=== PATIENT | female | born 1975 | race Caucasian/White ===

== ENCOUNTER 2018-06-14 21:02 | Inpatient (IN) | payer BC ==
[~2018-06-14] VITALS: Ht 152.4 cm; Wt 70.3 kg
[2018-06-14] MEDS ORDERED: TRAZODONE HCL150 MG PO (21:23)
[2018-06-14] MEDS ORDERED: SYNTHROID125 MCG PO (21:23)
[2018-06-14] MEDS ORDERED: TOPAMAX15 MG (21:25)
[2018-06-14 22:03] LABS: APPEARANCE HAZY (CLEAR); COLOR YELLOW (YELLOW)
[2018-06-14 22:04] LABS: BILIRUBIN NEGATIVE (NEGATIVE); GLUCOSE NEGATIVE (NEGATIVE); KETONE NEGATIVE (NEGATIVE); NITRITE NEGATIVE (NEGATIVE); PROTEIN NEGATIVE (NEGATIVE); RED CELLS - URINE OCC /hpf (0-5); SPECIFIC GRAVITY 1.015 (1.005-1.020); UROBILINOGEN NORMAL (NORMAL); WHITE CELLS - URINE 0-5 /hpf (0-5)
[2018-06-14 22:05] LABS: BACTERIA MANY /hpf (NONE SEEN); MUCUS <1+ /lpf (NONE SEEN)
[2018-06-14 22:16] LABS: HEMATOCRIT 32.7 % (36.0-48.0); HEMOGLOBIN 11.1 g/dL (12-16); MCH 27.8 pg (26.0-34.0); MCHC 33.9 g/dL (31.0-37.0); MCV 81.8 fL (80.0-100.0); MEAN PLATELET VOLUME 10.4 fL (7.4-10.4); PLATELET COUNT 202 10x3/uL (130-400); RDW 12.8 % (11.5-14.5); WBC 9.1 10x3/uL (4.8-10.8)
[2018-06-14 22:37] LABS: LYMPHOCYTES 34 % (15-50); NEUTROPHILS 66 % (40-80); PLATELET ESTIMATE NORMAL
[2018-06-14 22:39] LABS: ALBUMIN 3.4 g/dL (3.4-5.0); ALKALINE PHOSPHATASE 65 U/L (46-116); ALT (SGPT) 19 U/L (10-68); AMYLASE - SERUM 44 U/L (25-115); BILIRUBIN - TOTAL 0.53 mg/dL (0.2-1.3); CALC OSMOLALITY 281 mosm/kg (275-300); CALCIUM 8.1 mg/dL (8.5-10.1); CARBON DIOXIDE 23.5 mmol/L (21.0-32.0); CHLORIDE - SERUM 109 mmol/L (98-107); CREATININE - SERUM 0.8 mg/dL (0.6-1.3); GLUCOSE 99 mg/dL (74-106); LIPASE 214 U/L (73-393); PROTEIN - SERUM 6.6 g/dL (6.4-8.2); SODIUM 142 mmol/L (136-145); TROPONIN-I < 0.017 ng/mL (0.000-0.060); UREA NITROGEN 10 mg/dL (7-18); eGFR NON AFRICAN AMERICAN 83 mL/min (90-120)
[2018-06-14 22:52] LABS: POTASSIUM - SERUM 2.8 mmol/L (3.5-5.1)
--- NOTE | 2018-06-14 23:08 | NUR ---
PATIENT TO CT VIA STRETCHER.
--- NOTE | 2018-06-14 23:35 | NUR ---
PT'S IV COULD NOT TOLERATE THE CT SCAN. STARTED TWO ADDITONAL LINES
--- NOTE | 2018-06-14 23:36 | NUR ---
IV IN THE RIGHT WRIST D/C'D.
--- NOTE | 2018-06-15 00:50 | NUR ---
NS HANGING AND INFUSING WITH POTASSIUM CL.
--- NOTE | 2018-06-15 01:49 | NUR ---
SECOND DOSE OF 10 MEQ POTASSIUM, 1000 ML NS, AND LEVAQUIN 750 MG TAKEN TO UNIT WITH PATIENT. THESE ARE NOT HANGING OR INFUSING.
[2018-06-15 01:53] VITALS: BP 107/82
--- NOTE | 2018-06-15 02:11 | NUR ---
RECEIVED PT VIA STRETCHER FROM ED, PT TO ROOM 1223, PT TRANSFERS SELF TO BED, ADMISSION HISTORY, ASSESSMENT, AND MED REC INITIATED
[2018-06-15] MEDS ORDERED: PHENERGAN25 M1 PO (02:15)
[2018-06-15] MEDS ORDERED: ACETAMINOPHEN500 M1 PO (02:16)
[2018-06-15] MEDS ORDERED: IBUPROFEN800 MG PO (02:17)
[2018-06-15 02:38] VITALS: BP 110/72; BMI 30.3
--- NOTE | 2018-06-15 02:56 | NUR ---
ADMISSION HISTORY, ASSESSMENT, AND MED REC COMPLETED
--- NOTE | 2018-06-15 02:59 | NUR ---
2ND BAG OF KCL HUNG PER MD ORDERS, SEE EMAR, PT REPORTS BEING NERVOUS BECAUSE THE KCL WAS HURTING WHILE UP IN ER, INFORMED PT THAT I WILL KEEP AN EYE ON IT, PT VERBALIZES UNDERSTANDING, REQUESTED AND SERVED CUP OF ICE, PT ORIENTED TO ROOM, BED IN LOW POSITION, SIDE RAILS X 2
--- NOTE | 2018-06-15 03:12 | NUR ---
LATE ENTRY: PT REQUESTED AND PROVIDED ICE PACK TO PLACE ON ARM AT THIS TIME
--- NOTE | 2018-06-15 03:12 | NUR ---
PT BUSINESS INTELLIGENCE DEVELOPER LIGHT, STATES "IT'S REALLY BURNING, CAN YOU TURN IT DOWN SOME", KCL DECREASED TO 50ML/HR, WARM WASH CLOTH PROVIDED TO WASH FACE, WILL CONTINUE TO MONITOR
--- NOTE | 2018-06-15 03:26 | NUR ---
PT REPORTS THAT IT IS STILL HURTING, BUT NOT BAD AT THIS TIME, WILL CONTINUE TO MONITOR
--- NOTE | 2018-06-15 03:48 | NUR ---
PT CLINICAL QUALITY MANAGER LIGHT, REPORTS THAT IT IS STILL BURNING, GAVE PT OPTION TO STOP IV INFUSION, PT STATES "NO, JUST TURN IT BACK TO INFUSE AT 100 ML/HR SO IT WILL BE DONE QUICKER", KCL INCREASED TO 100ML/HR, WILL CONTINUE TO MONITOR
--- NOTE | 2018-06-15 04:11 | NUR ---
KCL STOPPED, NS RESUMES AT THIS TIME TO FLUSH LINE
--- NOTE | 2018-06-15 04:14 | NUR ---
ADM MITZI SIVP PER MD ORDERS, LEVAQUIN HUNG IVPB PER MD ORDERS, SEE EMAR, PT REPORTS THAT HER ARM FEELS "100%" BETTER NOW, PT INST TO LET ME KNOW IF THE LEVAQUIN CAUSES ANY BURNING SENSATION, PT VERBALIZES UNDERSTANDING
--- NOTE | 2018-06-15 05:03 | NUR ---
SHARLA BRADLEY, RN IN ROOM AND PLACES TELEMETRY, PT REPORTS HER PAIN IS A LOT BETTER RIGHT NOW, REQUESTED AND ADJ AIR CONDITIONING, DENIES FURTHER NEEDS
--- NOTE | 2018-06-15 06:40 | NUR ---
PT UP TO BR WITH ASSISTANCE, VOIDED WITH NO DIFFICULTY, STATES "THIS IS THE MOST I'VE VOIDED IN A COUPLE OF DAYS", PT TO SINK TO WASH HANDS, BACK TO BED, DENIES NEEDS AT THIS TIME
[2018-06-15 07:50] VITALS: BP 121/78
--- NOTE | 2018-06-15 07:50 | NUR ---
PT. AWAKE AND ALERT SITTING UP IN BED. PT. HAS COMPLAINTS OF ABDOMINAL PAIN IN LEFT LOWER QUAD. AT 5 ON NUMERIC PAIN SCALE. DILAUDID ORDERED FOR PAIN AND GIVEN TO PT FOR PAIN. SEE EMAR. VITALS AND ASSESSMENT OBTAINED SEE ASSESSSMENT.
--- NOTE | 2018-06-15 09:00 | NUR ---
DR. JIMENEZ'S MUD ANALYSIS WELL LOGGING CAPTAIN HERE TO SEE PT.
[2018-06-15 10:21] VITALS: Ht 152.4 cm; Wt 70.3 kg
--- NOTE | 2018-06-15 10:50 | NUR ---
LAB HERE TO DRAW STAT LABS ON PT.
--- NOTE | 2018-06-15 11:05 | NUR ---
PT COMPLAINS OF LOWER LEFT QUAD ABDOMINAL PAIN 5/10 ON NUMERIC PAIN SCALE. NORCO 3/325 1 TAB P.O GIVEN AT THIS TIME FOR PAIN.
[2018-06-15 11:12] LABS: BASOPHILS 0.1 % (0-2); EOSINOPHILS 0 % (0-7); HEMOGLOBIN 11.1 g/dL (12-16); IMMATURE GRANULOCYTES 0.1 % (0-5); LYMPHOCYTES 32.2 % (15-50); MCH 27.8 pg (26.0-34.0); MCHC 33.6 g/dL (31.0-37.0); MCV 82.7 fL (80.0-100.0); MEAN PLATELET VOLUME 10.8 fL (7.4-10.4); MONOCYTES 10.6 % (2-11); PLATELET COUNT 184 10x3/uL (130-400); RBC 3.99 10x6/uL (4.00-5.40); RDW 12.8 % (11.5-14.5); WBC 6.9 10x3/uL (4.8-10.8)
[2018-06-15 11:26] LABS: ALBUMIN 3.1 g/dL (3.4-5.0); ALKALINE PHOSPHATASE 60 U/L (46-116); ALT (SGPT) 20 U/L (10-68); BILIRUBIN - TOTAL 0.54 mg/dL (0.2-1.3); CALC OSMOLALITY 286 mosm/kg (275-300); CALCIUM 8.1 mg/dL (8.5-10.1); CARBON DIOXIDE 23.9 mmol/L (21.0-32.0); CHLORIDE - SERUM 112 mmol/L (98-107); CREATININE - SERUM 0.5 mg/dL (0.6-1.3); GLUCOSE 92 mg/dL (74-106); MAGNESIUM - SERUM 1.7 mg/dL (1.8-2.4); POTASSIUM - SERUM 3.3 mmol/L (3.5-5.1); PROTEIN - SERUM 6.4 g/dL (6.4-8.2); SODIUM 145 mmol/L (136-145); UREA NITROGEN 7 mg/dL (7-18); eGFR NON AFRICAN AMERICAN > 90 mL/min (90-120)
--- NOTE | 2018-06-15 11:48 | NUR ---
PT AMBULATORY TO BATHROOM WITHOUT ASSIST. PT STATED PAIN STILL NOT ANY BETTER AND SHE IS JUST TRYING TO GET SOME SLEEP.
[2018-06-15 12:30] VITALS: BP 112/82
--- NOTE | 2018-06-15 12:30 | NUR ---
PT. RESTING IN BED WITH EYES CLOSED. PT. STILL COMPLAINS OF PAIN IN ABDOMEN WITH MOVEMENT.
--- NOTE | 2018-06-15 13:08 | NUR ---
PT. COMPLAINS OF PAIN 7/10 ON NUMERIC PAIN SCALE. DILAUDID 1MG IVP GIVEN AT THIS TIME FOR LOWER LEFT QUAD ABDOMINAL PAIN.
--- NOTE | 2018-06-15 13:30 | NUR ---
PT. STILL RESTING IN BED WITH EYES CLOSED AND REPORTS PAIN IS DECREASED AFTER IV PAIN MED.
--- NOTE | 2018-06-15 14:00 | NUR ---
PT. RESTING IN BED WITH EYES CLOSED. NO COMPLAINTS AT THIS TIME.
[2018-06-15 14:20] LABS: APPEARANCE CLEAR (CLEAR); BILIRUBIN NEGATIVE (NEGATIVE); COLOR STRAW (YELLOW); GLUCOSE NEGATIVE (NEGATIVE); KETONE NEGATIVE (NEGATIVE); NITRITE NEGATIVE (NEGATIVE); PROTEIN NEGATIVE (NEGATIVE); SPECIFIC GRAVITY 1.015 (1.005-1.020); UROBILINOGEN NORMAL (NORMAL)
--- NOTE | 2018-06-15 15:00 | NUR ---
PT. AWAKE AND ALERT AND REQUESTED A POPSICLE. POPSICLE GIVEN.
--- NOTE | 2018-06-15 16:18 | NUR ---
DR. JIMENEZ HERE TO SEE PT.
--- NOTE | 2018-06-15 17:01 | NUR ---
PT. COMPLAINS OF LEFT LOWER QUAD. PAIN 6/10 ON NUMERIC PAIN SCALE. NORCO 10 GIVEN 1 TAB P.O FOR PAIN. SEE EMAR.
--- NOTE | 2018-06-15 17:19 | NUR ---
LAB HERE TO DRAW SERUM POTASSIUM.
--- NOTE | 2018-06-15 18:33 | NUR ---
PT. RESTING IN BED WITH EYES CLOSED. PT. STATES SHE IS STILL HAVING SOME ABDOMINAL PAIN AND SOME NAUSEA OFF AND ON.
[2018-06-15 19:12] VITALS: BP 114/77
--- NOTE | 2018-06-15 19:12 | NUR ---
PT REC'D IN BED AT THIS TIME. COMPLAINS OF LOWER ABDOMINAL PAIN THAT HAS BEEN UNRELIEVED BY PAIN MEDICATION TODAY. PATIENT STATES THAT THE BELLY PAIN BEGAN AFTER SHE COMPLETED HER SUPPER TRAY TODAY. IV INFUSING TO THE LEFT ARM AT 50 ML.HR.STIE CLEAR AND PATNET. LUNGS CLEAR. BS+. TENDERNESS NOTED TO THE LEFT LOWER QUADRANT UPON PALPATION. PT STATES THAT SHE IS EXHAUSTED AND WANTS TO GO HOME. SHE SAYS SHE HATES HOW THE DILAUDUD MAKES HER FEEL. PAIN MEDICATION OFFERED AT THIS TIME AND PATIENT STATES WHATEVER. Julieta BRADLEY RN
--- NOTE | 2018-06-15 20:08 | NUR ---
PT MEDICATED AT THIS TIME WITH DILAUDUD 1 MG FOR PAIN LEVEL OF 7 AT THIS TIME. Julieta BRADLEY RN
--- NOTE | 2018-06-15 21:06 | NUR ---
PT MEDICATED WITH HYDROCODONE 10 MG AT THIS TIME. PT STATES THAT PAIN IS 4 AT THIS TIME. Julieta BRADLEY RN
--- NOTE | 2018-06-15 22:17 | NUR ---
PT SPOUSE VISITING. PT REQUESTING A RED POPSICLE. Julieta BRADLEY RN
--- NOTE | 2018-06-15 22:40 | NUR ---
PT ASLEEP AT THIS TIME. NO DISTRESS NOTED. Julieta BRADLEY RN
--- NOTE | 2018-06-15 23:36 | NUR ---
PT MEDICATED WITH PHENERGAN. PT REQUESTING THAT SHE BE MEDICATED PRIOR TO DILAUDID BECAUSE IT MAKES HER NAUSEATED. PT STATES THAT SHE WILL CALL FOR HER PAIN MEDICATION. PT INITIALLY REQUESTED THAT ALL PAIN MEDICATEION BE BROUGHT ON SCHEDULE. PT INFORMED THAT IS SCHEDULED PRN AND SHE WOULD HAVE TO ASK FOR IT IF IT IS NEEDED. Julieta BRADLEY RN
[2018-06-16 00:26] VITALS: BP 111/78
--- NOTE | 2018-06-16 00:30 | NUR ---
PT MEDICATED WITH DILAUDID 2 MG FOR PAIN LEVEL OF 6. WILL CONTINUE TO MONITOR PAIN THIS SHIFT. ИВАН. Julieta BRADLEY RN. Julieta BRADLEY RN
--- NOTE | 2018-06-16 01:19 | NUR ---
PT ASLEEP AFTER PAIN MEDICATION. DID NOT AWAKEN. RESPS EVEN AND UNLABORED. Julieta BRADLEY RN
--- NOTE | 2018-06-16 03:17 | NUR ---
PT ASLEEP AT THIS TIME. DID NOT AWAKEN. NO DISTRESS NOTED. Julieta BRADLEY RN
[2018-06-16 04:00] VITALS: BP 104/61
--- NOTE | 2018-06-16 04:00 | NUR ---
PT ASLEEP UPON ENTERING ROOM. PT AWAKENED AND ASKED IF IT WAS TIME FOR PAIN MEDICATION. PT STATES HER PAIN IS A 5. SHE INTERMITTENTLY DRIFTS OFF TO SLEEP. LEVAQUIN UP AT THIS TIME. WILL MEDICATE FOR PAIN. Julieta BRADLEY RN
--- NOTE | 2018-06-16 04:14 | NUR ---
PT MEDICATED WITH NORCO 10 FOR PAIN. Julieta BRADLEY RN
--- NOTE | 2018-06-16 05:13 | NUR ---
PT RESTING COMFORTABLY AFTER PAIN MEDICATION. NO DISTRESS NOTED. Julieta BRADLEY RN
[2018-06-16 07:58] LABS: BASOPHILS 0.2 % (0-2); EOSINOPHILS 0.2 % (0-7); HEMATOCRIT 32.1 % (36.0-48.0); HEMOGLOBIN 10.7 g/dL (12-16); IMMATURE GRANULOCYTES 0.2 % (0-5); LYMPHOCYTES 36.4 % (15-50); MCH 27.8 pg (26.0-34.0); MCHC 33.3 g/dL (31.0-37.0); MCV 83.4 fL (80.0-100.0); MEAN PLATELET VOLUME 10.9 fL (7.4-10.4); MONOCYTES 11.9 % (2-11); NEUTROPHILS 51.1 % (40-80); PLATELET COUNT 193 10x3/uL (130-400); RBC 3.85 10x6/uL (4.00-5.40); RDW 12.8 % (11.5-14.5)
[2018-06-16 08:01] LABS: CARBON DIOXIDE 26.2 mmol/L (21.0-32.0); CHLORIDE - SERUM 107 mmol/L (98-107); GLUCOSE 96 mg/dL (74-106); POTASSIUM - SERUM 3.3 mmol/L (3.5-5.1); SODIUM 140 mmol/L (136-145)
[2018-06-16 08:07] LABS: CALC OSMOLALITY 275 mosm/kg (275-300); CREATININE - SERUM 0.6 mg/dL (0.6-1.3); eGFR NON AFRICAN AMERICAN > 90 mL/min (90-120)
[2018-06-16 08:09] LABS: UREA NITROGEN 4 mg/dL (7-18)
[2018-06-16 08:12] LABS: WBC 4.8 10x3/uL (4.8-10.8)
[2018-06-16 08:14] VITALS: BP 116/68
--- NOTE | 2018-06-16 08:14 | NUR ---
SHIFT ASSESSMENT COMPLETED AT THIS TIME. SEE FLOWSHEET. PT RATES PAIN 3/10 AT THIS TIME AND REPORTS IT IS TOLERABLE. INQUIRES ABOUT REGULAR DIET. ADVISED PT THAT MD WILL MAKE ROUNDS SHORTLY. PT VERBALIZED UNDERSTANDING. PT REQUESTS AND RECEIVES BUI POPSICLE. NO FURTHER NEEDS VOICED. BED LOW, WHEELS LOCKED, CALL LIGHT AND PHONE WITHIN REACH. SIDE RAILS UP X2.
--- NOTE | 2018-06-16 08:53 | NUR ---
PT RINGS CALL LIGHT REQUESTING SHOWER. WILL CALL TELEMETRY TO INFORM OF SHOWER TIME.
--- NOTE | 2018-06-16 09:12 | NUR ---
PT UP TO SHOWER. PIV TO LT HAND SL AND WRAPPED. TOWELS AND SOAP PROVIDED. LINENS ON BED CHANGED AT THIS TIME.
--- NOTE | 2018-06-16 09:40 | NUR ---
PT REQUESTS PAIN MEDICATION FOR PAIN RATED 7/10 DESCRIBED STABBING/SHARP ABDOMINAL PAIN. NORCO 10/325MG X1 TAB GIVEN AT THIS TIME. PT DENIES FURTHER NEEDS. WILL CONTINUE TO MONITOR.
--- NOTE | 2018-06-16 10:20 | NUR ---
PT REPORTS SHE WENT TO THE BATHROOM AND "PASSED A LOT OF GAS" BUT DID NOT HAVE A BOWEL MOVEMENT. PT REQUESTING PAIN MEDICATION. ADVISED PT THAT SHE JUST HAD A NORCO 10 AND ADVISED THAT SHE MAY WANT TO WAIT LONG ENOUGH FOR THAT MEDICATION TO TAKE EFFECT. PT IS AGREEABLE AND DENIES FURTHER NEEDS AT THIS TIME.
--- NOTE | 2018-06-16 11:02 | NUR ---
POTASSIUM, MAGOX, AND LOVENOX GIVEN PER ORDERS. SEE EMAR FOR ADMINISTRATION. PT DENIES NEEDS AT THIS TIME.
--- NOTE | 2018-06-16 11:40 | NUR ---
PT RESTING WITH EYES CLOSED AND RESP EVEN AND UNLABORED. PT AWAKENS TO LIGHT VERBAL STIMULI FOR SCHEDULED MEDICATION. PT REPORTS PAIN IN ABD IS SHARP, STABBING, AND BURNING PAIN. REQUESTS AND RECEIVES DILAUDID 2MG/1ML IV GIVEN FOR PAIN RATED 6/10 AT THIS TIME. FLORAJEN ALSO GIVEN PER ORDERS. PT DENIES FURTHER NEEDS AT THIS TIME.
[2018-06-16 12:00] VITALS: BP 112/74
--- NOTE | 2018-06-16 12:30 | NUR ---
PAIN REASSESSMENT COMPLETED. PT RESTING ON RT SIDE WITH EYES CLOSED, RESP EVEN & UNLABORED. PT LEFT UNDISTURBED AT THIS TIME.
--- NOTE | 2018-06-16 12:52 | NUR ---
PIV ALARMING OCCLUDED. ROUNDS MADE. SITE ASSESSED WNL, PUMP RESTARTED. PT STATES "THAT MEDICINE KICKED IN AND I'M FEELING A LOT BETTER." CL MEAL TRAY SERVED. PT DENIES FURTHER NEEDS AT THIS TIME.
--- NOTE | 2018-06-16 13:14 | NUR ---
PT RESTING WITH EYES CLOSED. RESP EVEN & UNLABORED. PT LEFT UNDISTURBED AT THIS TIME.
--- NOTE | 2018-06-16 14:36 | NUR ---
FLAGYL SET TO INFUSE PER ORDERS. SEE EMAR FOR ADMINISTRATION. PT REQUESTS AND RECEIVES NORCO 10/325MG X1 TAB FOR PAIN RATED 5/10 IN ABD AT THIS TIME. PT REPORTS DESIRE TO "STAY UP ON NORCO AND ELIMINATE DILAUDID IN PREPARATION OF GOING HOME." PT REPORTS H/A AND STATES SHE HAS NOT HAD HER MIGRAINE MEDICINE SINCE ADMISSION TO HOSPITAL. PT REPORTS TAKING TOPAMAX AT BEDTIME. ADVISED PT I WILL CHECK HOME MEDS AND UPDATE WITH MD. PT DENIES FURTHER NEEDS AT THIS TIME.
--- NOTE | 2018-06-16 15:45 | NUR ---
MAG OX GIVEN PER ORDERS. SEE EMAR FOR ADMINISTRATION. PT REPORTS PAIN 3/10 AND TOLERABLE AT THIS TIME. NO FURTHER NEEDS VOICED. WILL CONT TO MONITOR PRN.
[2018-06-16 16:22] VITALS: BP 114/68
--- NOTE | 2018-06-16 16:38 | NUR ---
CALL RCVD FROM NGA, DRILL PRESS OPERATOR NUMERICAL CONTROL, THAT PT WILL GO TO ROOM 1209 AFTER CURRENT PT DISCHARGES AND ROOM IS CLEAN. NGA REPORTS SHE WILL INFORM ME WHEN ROOM IS CLEAN AND PT CAN BE MOVED.
--- NOTE | 2018-06-16 16:40 | NUR ---
DR JIMENEZ ON UNIT FOR ROUNDS.
[2018-06-16] MEDS ORDERED: FLAGYL500 MG PO (16:55)
[2018-06-16] MEDS ORDERED: LEVAQUIN750 MG PO (16:55)
--- NOTE | 2018-06-16 17:58 | NUR ---
D/C INSTRUCTIONS EXPLAINED, SIGNED, AND WITNESSED. COPY OF INSTRUCTIONS PROVIDED TO PT. PRESCRIPTION PROVIDED TO PT. PT DENIES QUESTIONS OR CONCERNS AT THIS TIME. PIV TO LT HAND D/C'D WITH CATH TIP INTACT. PRESSURE DRESSING APPLIED TO SITE. PT TOLERATED WELL. PT UP TO DRESS. AWAITING LAST NORCO DOSE BEFORE D/C'D TO HOME.
--- NOTE | 2018-06-16 18:10 | NUR ---
NORCO 10/325 MG X1 TAB GIVEN PER PT REQUEST AT THIS TIME.
--- NOTE | 2018-06-16 18:20 | NUR ---
PT OFF UNIT VIA W/C PER Veronica CRUMP RN.
== END 2018-06-16 18:20 | disposition home or self-care (01) | DRG 392 ==
LOC: D.ER 21:02 → D.EDHOLD 06-15 00:25 → D.WS 06-15 00:25
PROVIDERS: Family Medicine; ADMIT Internal Medicine Nephrology; ATTEND Internal Medicine Nephrology
DX: K57.92 Diverticulitis of intestine, part unspecified, without perforation or abscess without bleeding (principal); M19.90 Unspecified osteoarthritis, unspecified site; G47.00 Insomnia, unspecified; E87.6 Hypokalemia; E03.9 Hypothyroidism, unspecified